=== PATIENT | male | born 1985 | race Caucasian/White ===

== ENCOUNTER → 2016-10-27 | Outpatient (CLI) | payer OTHER ==
--- NOTE | 2016-10-27 20:55 | REP ---
Clinical: Left testicular pain with history of prior varicocele repair. Technique: Denny scale and color Doppler evaluation using linear and curved array transducer with color Doppler evaluation. Findings: The testicles and epididymi are relatively normal in contour, size, echogenicity, vascularity and overall appearance/contour. Incidental note is made of right epididymal head cyst measuring 2 mm and two left epididymal cysts measuring 7 mm each - one of which contains a 3 mm calcification. There is no evidence for intratesticular mass lesion, infectious/inflammatory process, with torsion. No significant hydroceles. No definite varicoceles are identified with minimal thrombosed vessels up to 3 mm identified bilaterally. Right testicle measures 3.8 x 1.6 x 2.4 cm. Left testicle measures 3.6 x 1.9 x 2.7 cm. Impression: Essentially normal scrotal ultrasound. Small epididymal head cysts up to 7 mm (left greater than right). Signed by Tong Alva MD 10/27/2016 08:47 P
== END ==
LOC: M SMT 13:34
PROVIDERS: ATTEND Nurse Practitioner Women's Health
DX: N50.3 Cyst of epididymis (principal); N46.9 Male infertility, unspecified

== ENCOUNTER → 2017-07-13 | Outpatient (REF) | payer OTHER ==
[2017-07-13 11:26] LABS: #IMMOTILE SPERM COUNTED 11.5; #MOTILE SPERM COUNTED 13.5; % MOTILITY 54 (> 40%)
== END ==
LOC: M LAB REF 10:06
PROVIDERS: ATTEND Physician Assistant
DX: Z30.2 Encounter for sterilization (principal)

== ENCOUNTER → 2017-08-10 | Outpatient (CLI) | payer OTHER ==
[2017-08-10 11:35] LABS: LUTEINIZING HORMONE 5.3 mIU/mL (1.5-9.3)
[2017-08-10 11:36] LABS: FOLLICLE STIMULATING HORMONE 7.8 mIU/mL (1.4-18.1)
== END ==
LOC: M LAB 09:44
PROVIDERS: ATTEND Urology
DX: N46.9 Male infertility, unspecified (principal)